=== PATIENT | male | born 1940 | race African-American/Black ===

== ENCOUNTER 2019-10-28 15:42 | Inpatient (IN) | payer MEDICARE, OTHER ==
[~2019-10-28] VITALS: Ht 188 cm; Wt 96.2 kg
[~2019-10-28 15:42] MED LIST: FAMO-134 MT; LEVO500T2 MT; LISI-604 PO
[2019-10-28 16:55] LABS: BASOPHILS % 0.3 % (0.0-2.0); EOSINOPHILS % 0.1 % (0.0-5.0); HEMATOCRIT. 27.3 % (42.0-52.0); HEMOGLOBIN. 8.5 g/dL (14.0-18.0); LYMPHOCYTES % 10.6 % (20.0-50.0); MEAN CORPUSCULAR VOLUME 76.8 fL (80.0-94.0); MONOCYTES % 2.9 % (2.0-8.0); NEUTROPHILS % 86.1 % (40.0-76.0); PLATELET 226 x1000/uL (130-400); RED BLOOD CELL COUNT 3.56 mill/uL (4.7-6.1); RED CELL DISTRIBUTION WIDTH 14.2 % (11.6-14.6)
[2019-10-28 17:03] LABS: CHLORIDE 106 mEq/L (98-107)
[2019-10-28 17:12] LABS: INR 1.1; PROTHROMBIN TIME 11.5 sec (9.6-11.0)
[2019-10-28] MEDS ORDERED: ONDANSETRON HCL 4MG/2ML INJ IV ONE (17:15)
[2019-10-28] MEDS ORDERED: SODIUM CHLORIDE 0.9% 500 ML IV ONE (17:15)
[2019-10-28] MEDS ORDERED: FAMOTIDINE 20MG/2ML VIAL IV ONE (18:00)
[2019-10-28] MEDS ORDERED: PANTOPRAZOLE SODIUM 40 MG/VIAL IV ONE (18:00)
[2019-10-28] MEDS ORDERED: GUAIFENESIN 200MG/10ML SUGAR FREE UDC PO PRN (18:45)
[2019-10-28] MEDS ORDERED: MAGNESIUM/ALUMINUM HYDROXIDE/SIMETHICONE 30ML UDC PO PRN (18:45)
[2019-10-28] MEDS ORDERED: IPRATROPIUM/ALBUTEROL 0.5-3(2.5)MG/3ML NEB NEB PRN (18:45)
[2019-10-28] MEDS ORDERED: ZOLPIDEM TARTRATE 5MG TABLET PO PRN (18:45)
[2019-10-28] MEDS ORDERED: ACETAMINOPHEN 325MG TABLET PO PRN ×2 (18:45)
[2019-10-28] MEDS ORDERED: ONDANSETRON HCL 4MG/2ML INJ IV PRN (18:45)
[2019-10-28] MEDS ORDERED: TRAMADOL 50MG TABLET PO PRN (18:45)
[2019-10-28] MEDS ORDERED: NITROGLYCERIN 0.4MG TABLET SL SL PRN (18:45)
[2019-10-28] MEDS ORDERED: DOCUSATE SODIUM 100MG CAPSULE PO PRN (18:45)
[2019-10-28] MEDS ORDERED: PANTOPRAZOLE 80 MG in SODIUM CHLORIDE 0.9% 100 ML IV SCH (19:00)
[2019-10-28 19:07] LABS: ETHANOL BLOOD < 10 mg/dL
[2019-10-28 19:09] LABS: TOTAL IRON BINDING CAPACITY 252 ug/dL (250-450)
[2019-10-28 19:10] LABS: LDL CHOLESTEROL 51 mg/dL (5-100)
[2019-10-28 19:11] LABS: HDL CHOLESTEROL 61 mg/dL (40-59)
[2019-10-28 19:24] LABS: FOLIC ACID (FOLATE) SERUM 14.4 ng/mL (>5.38)
[2019-10-28] MEDS: DEXT 5%/LACTATED RINGERS 1,000 ML IV SCH (20:30)
[2019-10-28] MEDS ORDERED: LORAZEPAM 2MG/ML CPJ ONE (21:44)
[2019-10-28] MEDS: PANTOPRAZOLE 80 MG in SODIUM CHLORIDE 0.9% 100 ML IV SCH (21:45)
[2019-10-29] VITALS (14 sets, daily range): BP systolic 108–146; BP diastolic 49–83
[2019-10-29] MEDS: DEXT 5%/LACTATED RINGERS 1,000 ML IV SCH ×3 (04:57→23:10)
[2019-10-29] MEDS: PANTOPRAZOLE 80 MG in SODIUM CHLORIDE 0.9% 100 ML IV SCH ×2 (05:00→16:59)
[2019-10-29 07:46] LABS: BASOPHILS % 0.2 % (0.0-2.0); EOSINOPHILS % 0.1 % (0.0-5.0); LYMPHOCYTES % 10.7 % (20.0-50.0); MEAN CORPUSCULAR HEMOGLOBIN 24.8 pg (28.0-32.0); MONOCYTES % 6.1 % (2.0-8.0); NEUTROPHILS % 82.9 % (40.0-76.0); PLATELET 186 x1000/uL (130-400); RED BLOOD CELL COUNT 2.58 mill/uL (4.7-6.1)
[2019-10-29 07:56] LABS: PHOSPHORUS 2.6 mg/dL (2.5-4.9)
[2019-10-29 07:59] LABS: HEMATOCRIT. 19.7 % (42.0-52.0); HEMOGLOBIN. 6.4 g/dL (14.0-18.0)
[2019-10-29 08:09] LABS: CHLORIDE 109 mEq/L (98-107)
[2019-10-29 14:30] LABS: TOTAL IRON BINDING CAPACITY 292 ug/dL (250-450)
[2019-10-29] MEDS ORDERED: FERR325T6 MT (15:38)
[2019-10-29] MEDS ORDERED: AMLO5TAB88 MT (15:39)
[2019-10-29] MEDS ORDERED: APIX5TAB MT (15:39)
[2019-10-29] MEDS ORDERED: ATOR20TA65 MT (15:40)
[2019-10-29] MEDS ORDERED: MELA3TAB71 MT (15:41)
[2019-10-29] MEDS ORDERED: MIRT7.5T11 PO (15:42)
[2019-10-29] MEDS ORDERED: ASCO500C18 MT (15:43)
[2019-10-29] MEDS ORDERED: FOLI-43 MT (15:43)
[2019-10-29] MEDS ORDERED: TOLT2TAB2 MT (15:44)
[2019-10-29] MEDS ORDERED: DOCU250C69 MT (15:44)
[2019-10-29] MEDS ORDERED: MELO-106 MT (15:46)
[2019-10-29] MEDS ORDERED: CYAN-33 MT (15:49)
[2019-10-29] MEDS ORDERED: GUAI400T93 MT (15:49)
[2019-10-29 17:18] LABS: HEMATOCRIT 23.6 % (42.0-52.0); HEMOGLOBIN 7.6 g/dL (14.0-18.0)
[2019-10-29 17:24] LABS: INR 1.1; PROTHROMBIN TIME 11.4 sec (9.6-11.0)
[2019-10-30] VITALS (14 sets, daily range): BP systolic 123–175; BP diastolic 50–94
[2019-10-30] MEDS: PANTOPRAZOLE 80 MG in SODIUM CHLORIDE 0.9% 100 ML IV SCH ×3 (01:00→21:00)
[2019-10-30 07:59] LABS: BASOPHILS % 0.4 % (0.0-2.0); EOSINOPHILS % 1.4 % (0.0-5.0); LYMPHOCYTES % 24.5 % (20.0-50.0); MEAN CORPUSCULAR HEMOGLOBIN 25.2 pg (28.0-32.0); MEAN CORPUSCULAR VOLUME 78.8 fL (80.0-94.0); MEAN PLATELET VOLUME 10.2 fl (7.4-10.4); MONOCYTES % 6.8 % (2.0-8.0); NEUTROPHILS % 66.9 % (40.0-76.0); PLATELET 136 x1000/uL (130-400); RED BLOOD CELL COUNT 2.73 mill/uL (4.7-6.1); RED CELL DISTRIBUTION WIDTH 15.4 % (11.6-14.6)
[2019-10-30 08:14] LABS: HEMATOCRIT. 21.5 % (42.0-52.0); HEMOGLOBIN. 6.9 g/dL (14.0-18.0)
[2019-10-30] MEDS: DEXT 5%/LACTATED RINGERS 1,000 ML IV SCH ×2 (10:00→20:43)
[2019-10-30 16:28] LABS: HEMATOCRIT 27.5 % (42.0-52.0); HEMOGLOBIN 8.9 g/dL (14.0-18.0)
[2019-10-30 16:37] LABS: PROTHROMBIN TIME 10.9 sec (9.6-11.0)
[2019-10-30] MEDS: CLONIDINE 0.1MG TABLET PO PRN (17:08)
[2019-10-30] MEDS: DIATR MEGLU/DIATRIZOATE SOLN 30ML PO NR ×2 (17:25→18:25)
[2019-10-30] MEDS ORDERED: IOHEXOL-350 100 ML BOTTLE ONE (20:14)
[2019-10-30 23:24] LABS: HEMATOCRIT 25.5 % (42.0-52.0); HEMOGLOBIN 8.4 g/dL (14.0-18.0)
[2019-10-31] VITALS (7 sets, daily range): BP systolic 107–163; BP diastolic 53–69
[2019-10-31] MEDS: CLONIDINE 0.1MG TABLET PO PRN (05:38)
[2019-10-31] MEDS: PANTOPRAZOLE 80 MG in SODIUM CHLORIDE 0.9% 100 ML IV SCH ×2 (06:22→17:45)
[2019-10-31] MEDS: DEXT 5%/LACTATED RINGERS 1,000 ML IV SCH ×2 (06:22→16:53)
[2019-10-31 06:58] LABS: HEMATOCRIT 25.2 % (42.0-52.0); HEMOGLOBIN 8.2 g/dL (14.0-18.0)
[2019-10-31 15:34] LABS: HEMATOCRIT 27.6 % (42.0-52.0); HEMOGLOBIN 8.8 g/dL (14.0-18.0)
[2019-10-31] MEDS ORDERED: SORBITOL 70% SOLN 30ML PO NR ×2 (16:00→20:00)
[2019-10-31] MEDS ORDERED: METOCLOPRAMIDE HCL 10MG/2ML VIAL IV NR ×2 (16:00→20:00)
[2019-11-01] VITALS: BP 151/74
[2019-11-01 00:23] LABS: HEMATOCRIT 26.3 % (42.0-52.0); HEMOGLOBIN 8.7 g/dL (14.0-18.0)
[2019-11-01] MEDS: DEXT 5%/LACTATED RINGERS 1,000 ML IV SCH ×3 (03:04→22:34)
[2019-11-01] MEDS: PANTOPRAZOLE 80 MG in SODIUM CHLORIDE 0.9% 100 ML IV SCH (03:06)
[2019-11-01 04:00] VITALS: BP 136/67
[2019-11-01 06:01] LABS: CHLORIDE 111 mEq/L (98-107)
[2019-11-01 06:32] LABS: HEMATOCRIT 26.5 % (42.0-52.0); HEMOGLOBIN 8.7 g/dL (14.0-18.0)
[2019-11-01] MEDS ORDERED: POTASSIUM CHLORIDE 20MEQ/PACKET PO SCH (07:30)
[2019-11-01 08:00] VITALS: BP 166/77
[2019-11-01] MEDS ORDERED: BISACODYL 5MG TABLET PO SCH (08:30)
[2019-11-01] MEDS ORDERED: METOCLOPRAMIDE HCL 10MG/2ML VIAL IV SCH (09:00)
[2019-11-01] MEDS ORDERED: SORBITOL 70% SOLN 30ML PO SCH ×2 (09:00)
[2019-11-01] MEDS: PANTOPRAZOLE SODIUM 40 MG/VIAL IV SCH ×2 (09:10→21:44)
[2019-11-01] MEDS: CLONIDINE 0.1MG TABLET PO PRN ×2 (11:11→21:44)
[2019-11-01 12:00] VITALS: BP 160/79
[2019-11-01] MEDS ORDERED: FENTANYL CITRATE/PF 50MCG/ML 2ML VIAL IV PRN (13:53)
[2019-11-01] MEDS ORDERED: MIDAZOLAM HCL 5 MG/5 ML VIAL IV PRN (13:57)
[2019-11-01] MEDS ORDERED: MIDAZOLAM HCL 5 MG/5 ML VIAL ONE (13:59)
[2019-11-01] MEDS ORDERED: FENTANYL CITRATE/PF 50MCG/ML 2ML VIAL ONE (13:59)
[2019-11-01 16:00] VITALS: BP 138/61
[2019-11-01] MEDS: NITROGLYCERIN OINT 1GM/INCH UDPKT TD SCH ×2 (17:25→21:44)
[2019-11-01] MEDS ORDERED: KCL 20MEQ/100ML PREMIX 100 ML IV NR (18:00)
[2019-11-01 20:00] VITALS: BP 161/84
[2019-11-01 20:05] LABS: HEMATOCRIT 27.1 % (42.0-52.0); HEMOGLOBIN 8.7 g/dL (14.0-18.0)
[2019-11-01 23:29] LABS: HEMATOCRIT 24.8 % (42.0-52.0); HEMOGLOBIN 8.1 g/dL (14.0-18.0)
[2019-11-02] VITALS: BP 128/61
[2019-11-02 04:00] VITALS: BP 163/77
[2019-11-02] MEDS: NITROGLYCERIN OINT 1GM/INCH UDPKT TD SCH ×2 (05:52→15:27)
[2019-11-02] MEDS: CLONIDINE 0.1MG TABLET PO PRN (05:55)
[2019-11-02 07:11] LABS: HEMATOCRIT. 25.8 % (42.0-52.0); HEMOGLOBIN. 8.4 g/dL (14.0-18.0); MEAN CORPUSCULAR HEMOGLOBIN 26.6 pg (28.0-32.0); MEAN CORPUSCULAR VOLUME 81.9 fL (80.0-94.0); MEAN PLATELET VOLUME 9.6 fl (7.4-10.4); PLATELET 159 x1000/uL (130-400); RED BLOOD CELL COUNT 3.15 mill/uL (4.7-6.1); RED CELL DISTRIBUTION WIDTH 17.2 % (11.6-14.6)
[2019-11-02 07:24] LABS: CHLORIDE 109 mEq/L (98-107)
[2019-11-02 07:44] LABS: PHOSPHORUS 2.7 mg/dL (2.5-4.9)
[2019-11-02 08:30] VITALS: BP 132/57
[2019-11-02] MEDS: DEXT 5%/LACTATED RINGERS 1,000 ML IV SCH (08:46)
[2019-11-02] MEDS: PANTOPRAZOLE SODIUM 40 MG/VIAL IV SCH (08:46)
[2019-11-02 11:24] VITALS: BP 130/77
[2019-11-02 11:52] LABS: PLATELET ESTIMATE NORMAL
[2019-11-02 12:00] VITALS: BP 142/58
[2019-11-02 16:00] VITALS: BP 130/73
== END 2019-11-02 17:30 | disposition home or self-care (01) | DRG 378 ==
LOC: ER 15:42 → MICUSO 18:03 → 6WST 22:43
PROVIDERS: ADMIT Internal Medicine; ATTEND Internal Medicine
PROC: 30233N1 Transfusion of Nonautologous Red Blood Cells into Peripheral Vein, Percutaneous Approach (ICD-10-PCS; principal; 2019-10-29)
PROC: 0DBL8ZZ Excision of Transverse Colon, Via Natural or Artificial Opening Endoscopic (ICD-10-PCS; 2019-11-01)
PROC: 0DBP8ZX Excision of Rectum, Via Natural or Artificial Opening Endoscopic, Diagnostic (ICD-10-PCS; 2019-11-01)
DX: K57.31 Diverticulosis of large intestine without perforation or abscess with bleeding (principal); D62 Acute posthemorrhagic anemia; E44.1 Mild protein-calorie malnutrition; I10 Essential (primary) hypertension; I49.3 Ventricular premature depolarization; Z20.828 Contact with and (suspected) exposure to other viral communicable diseases; K63.5 Polyp of colon; K80.20 Calculus of gallbladder without cholecystitis without obstruction; Z82.49 Family history of ischemic heart disease and other diseases of the circulatory system; Z68.27 Body mass index [BMI] 27.0-27.9, adult; Z79.899 Other long term (current) drug therapy; D49.89 Neoplasm of unspecified behavior of other specified sites; R53.81 Other malaise
CPT/HCPCS: 36415; 71045; 74177; 76700; 80053; 80061; 80320; 82607; 82728; 82746; 82962; 83036; 83540; 83550; 83735; 83880; 84100; 84132; 84484; 85014; 85018; 85025; 85049; 85384; 86850; 86900; 86920; 87426; 87635; 88305; 93005; 93970; 97116; 97162; 97166; 99285; C9113; J2060; J2250; J2405; J2765; J3010; J3480; J3490; J7040; J7050; P9016; Q9963; Q9967; G0480